=== PATIENT | female | born 1990 | race Two or more races ===

== ENCOUNTER 2016-05-28 08:05 | Emergency (ER) | payer OTHER ==
[~2016-05-28] VITALS: Ht 167.6 cm; Wt 124.7 kg
[2016-05-28 08:42] LABS: KETONES,URINE NEGATIVE (NEGATIVE); LEUKOCYTE ESTERASE ,URINE TRACE (NEGATIVE); PH,URINE 5.5 (5.0-8.0)
[2016-05-28 08:45] LABS: PREGNANCY TEST URINE QUAL NEGATIVE (NEGATIVE)
[2016-05-28 08:47] LABS: ADD UA MICROSCOPIC YES
[2016-05-28 09:01] LABS: ADD URINE CULTURE YES
[2016-05-28 09:02] LABS: MUCUS,URINE Few /LPF (None Seen)
[2016-05-28 09:15] VITALS: BP 122/68
== END 2016-05-28 09:15 | disposition home or self-care (01) ==
LOC: ER 08:06
DX: N30.90 Cystitis, unspecified without hematuria (principal); Z88.0 Allergy status to penicillin
CPT/HCPCS: 81001; 84703; 87086; 99284; A4606; Z7610; 81000-TC